=== PATIENT | male | born 1980 | race Caucasian/White ===

== ENCOUNTER 2019-02-12 08:07 | Emergency (ER) | payer OTHER ==
[~2019-02-12] VITALS: Ht 185.4 cm; Wt 104.3 kg
[2019-02-12 08:27] VITALS: BP 125/70
--- NOTE | 2019-02-12 08:37 | PHYS DOC ---
Adult General Chief Complaint Chief Complaint: FOOT INJURY PAIN [facility] HPI Patient is a 39-year-old male who presents with complaint of right foot pain that started yesterday. Patient states that he been in the car driving most of the day and he felt a cramp in his calf. He states that this morning the cramp in the catheter is gone but now he has pain in his right mid foot. He denies any recent injuries to the foot but does question if he may have broken it. He states that the pain is worsened with weightbearing. He denies any cough, chest pain or shortness of breath. He denies any history of blood clots.[] Review of Systems Review of Systems Constitutional: Denies fever or chills [] Respiratory: Denies cough or shortness of breath [] Cardiovascular: No additional information not addressed in HPI [] Musculoskeletal: Positive right foot pain [] Integument: Denies rash or skin lesions [] Physical Exam Physical Exam Constitutional: Well developed, well nourished, no acute distress, non-toxic ap pearance. [] Cardiovascular:Heart rate regular rhythm, no murmur [] Lungs & Thorax: Bilateral breath sounds clear to auscultation [] Skin: Warm, dry, no erythema, no rash. [] Extremities: Examination of right foot demonstrates some tenderness to palpation around the distal in of the first metatarsal. [] Neurologic: Alert and oriented X 3, no focal deficits noted. [] EKG EKG [] Radiology/Procedures Radiology/Procedures [] Impressions: PROCEDURE: FOOT RIGHT 3V FOOT RIGHT 3V DATE: 02/12/2019 8:27 AM INDICATION: Medial foot pain, no known injury COMPARISON: None. FINDINGS: Bones: There is no evidence of acute fracture or dislocation. Small posterior calcaneal enthesophyte. Joints: The joint spaces are normal. Miscellaneous: None. IMPRESSION: No evidence of acute fracture. Electronically signed by: Donell Eaton MD (02/12/2019 9:13 AM) [facility] DICTATED AND SIGNED BY: DONELL EATON MD DATE: 02/12/19 0913 CC: CRISTAL CHOUDHURY Jr. DO; PCP,NO ~ Course & Med Decision Making Course & Med Decision Making Pertinent Labs and Imaging studies reviewed. (See chart for details) [] Dragon Disclaimer Dragon Disclaimer This electronic medical record was generated, in whole or in part, using a voice recognition dictation system. Departure Departure: Impression: Primary Impression: Right foot pain Disposition: 01 HOME, SELF-CARE Condition: STABLE Patient Instructions: Arthralgia, Musculoskeletal Pain Scripts Methylprednisolone (MEDROL) 4 Mg Tab.ds.pk 1 PKG PO UD for inflammation, #1 PKG Prov: CRISTAL CHOUDHURY Jr. DO 02/12/19 Diclofenac Sodium (DICLOFENAC SODIUM) 50 Mg Tablet.dr 1 TAB PO BID PRN for PAIN, #20 TAB Prov: CRISTAL CHOUDHURY Jr. DO 02/12/19 CRISTAL CHOUDHURY Jr. DO Feb 12, 2019 08:37
--- NOTE | 2019-02-12 09:16 | RAD ---
FOOT RIGHT 3V DATE: 02/12/2019 8:27 AM INDICATION: Medial foot pain, no known injury COMPARISON: None. FINDINGS: Bones: There is no evidence of acute fracture or dislocation. Small posterior calcaneal enthesophyte. Joints: The joint spaces are normal. Miscellaneous: None. IMPRESSION: No evidence of acute fracture. Electronically signed by: Lam Pratt MD (02/12/2019 9:13 AM) [id number]
[2019-02-12 09:47] LABS: URIC ACID 6.8 mg/dL (3.5-7.2)
[2019-02-12 10:02] LABS: C REACTIVE PROTEIN < 0.5 mg/L (0-3.3)
[2019-02-12] MEDS ORDERED: METH4TAB2 PO (10:31)
[2019-02-12] MEDS ORDERED: DICL50TA4 PO (10:31)
== END 2019-02-12 10:39 | disposition home or self-care (01) ==
LOC: ER 08:07
DX: M79.671 Pain in right foot (principal); R25.2 Cramp and spasm
CPT/HCPCS: 36415; 73630; 84550; 85379; 86140; 99285